=== PATIENT | female | born 1960 | race Caucasian/White ===

== ENCOUNTER 2017-05-04 12:55 | Emergency (ER) | payer OTHER ==
--- NOTE | ~2017-05-04 | ER ---
PATIENT'S NAME: HARLEY NEWMAN [facility] AGE: 57 Y [address] ROOM: [place] [address] LOCATION: [facility] ADMIT DATE: 05/04/2017 ER/Outpatient Report DISCHARGE DATE: 05/04/2017 FAMILY PHYSICIAN: PHYSICIAN, NO ATTENDING PHYSICIAN: Demond Deleon Time of Arrival: 1255 hours. Time of Evaluation: 1255 hours. CHIEF COMPLAINT: Chest pressure. HISTORY OF PRESENT ILLNESS: The patient is a 57-year-old female, who presents to the emergency department today with a chief complaint of chest pressure. The patient reports this started about 45 minutes prior to arrival. It is in the center of her chest. It radiates to her left arm. She denies any shortness of breath. No diaphoresis. No nausea or vomiting. No weakness. 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 The patient does report she had a similar episode about 2 weeks prior to arrival. PAST MEDICAL HISTORY: SVT, MS. She did have a stress test a few years ago, that was negative she reports. PAST SURGICAL HISTORY: Hysterectomy, cholecystectomy, tonsillectomy. SOCIAL HISTORY: The patient smokes a pack per day. Denies any alcohol or illicit drug use. ALLERGIES: NO KNOWN DRUG ALLERGIES. MEDICATIONS: Please see list. PRIMARY CARE DOCTOR: Dr. Sanches in [place]. REVIEW OF SYSTEMS: All systems are reviewed by myself and are negative with the exception of those discussed in the HPI and past medical history. PHYSICAL EXAMINATION: PATIENT'S NAME: HARLEY NEWMAN [facility] AGE: 57 Y [address] ROOM: [place] [address] LOCATION: [facility] ADMIT DATE: 05/04/2017 ER/Outpatient Report DISCHARGE DATE: 05/04/2017 FAMILY PHYSICIAN: PHYSICIAN, NO ATTENDING PHYSICIAN: Demond Deleon VITAL SIGNS: Weight 75.4 kg, blood pressure 167/70, pulse 55, respiratory rate 20, temperature 97.2, oxygen saturation 99% on room air. GENERAL: The patient is a 57-year-old female, who appears stated age. HEENT: Head: Normocephalic, atraumatic. NECK: Supple. There is no nuchal rigidity. CARDIOVASCULAR: Bradycardic. No murmurs, rubs, or gallops. LUNGS: Clear to auscultation bilaterally. No wheezes, rales, or rhonchi. ABDOMEN: Soft, nontender, and nondistended. No rebound, rigidity, or guarding. MUSCULOSKELETAL: The patient moves all 4 extremities. SKIN: Warm and dry. LABORATORY DATA AND X-RAYS: Labs and x-rays are obtained. CBC is remarkable for hemoglobin 8.1, hematocrit 27.8. Coags are normal. Occult blood is negative. CMP is unremarkable. LFTs normal. Magnesium is 1.8. Cardiac enzymes are normal. D- dimer is 0.51. EKG is obtained, is interpreted by myself, shows sinus bradycardia with a rate of 54, normal axis, normal interval. No ST elevation, ST depression, T-wave inversions. Repeat 2-hour EKG shows sinus bradycardia with a rate of 56, normal axis, normal interval. No ST elevation, ST depression, T-wave inversions. Chest x-ray shows no acute process. A 2-hour cardiac enzymes are normal. IMPRESSION: 1. Chest pain, unclear etiology. 2. Near syncope. 3. Anemia of unclear chronicity. 4. Leaving against medical advice. 5. Initial visit. EMERGENCY DEPARTMENT COURSE: The patient was brought back to the examination room. Seen and evaluated by myself. IV is established. Jannet, nurse practitioner, has also seen and evaluated the patient. The results are obtained. I have discussed results with the patient and her at the bedside. I have recommended admission to the hospital for further evaluation, treatment, and management. The patient does refuse. She wishes to go home. I have discussed alternatives including obtaining 2-hour cardiac enzymes. The patient does agree to this. I have discussed the risks and benefits of leaving against medical advice. The risks include that we have not ruled out a heart attack at this time; we do not know the cause of her anemia, and she is having episodes of feeling like she is going to pass out. All 3 of these have caused me to certainly recommend keeping this patient in the hospital. The benefits do ruling out heart attack, ruling out the potential causes of her anemia. After discussion of risks and benefits, the patient still does wish to leave against medical advice. She has signed AMA form and does have the mental capacity to make her PATIENT'S NAME: TRENTHARLEY [facility] AGE: 57 Y [address] ROOM: [place] [address] LOCATION: [facility] ADMIT DATE: 05/04/2017 ER/Outpatient Report DISCHARGE DATE: 05/04/2017 FAMILY PHYSICIAN: PHYSICIAN, GREG ATTENDING PHYSICIAN: Demond Deleon own decision regarding this. Her is in agreement. I have asked that she follows up with her primary care doctor as soon as possible. I have discussed return to care instructions including worsening symptoms, chest pain, passing out, shortness of breath, or any other concerns to return to the emergency department as soon as possible. The patient is agreeable. She is without further questions at this time. DISPOSITION: The patient is discharged to home in stable condition against medical advice. DO ESTLEA MERCEDES/isakl /[id number] d: 05/04/17 2359 t: 05/06/17 0721, OUTPATIENT REPORT
--- NOTE | ~2017-05-04 | ER ---
PATIENT'S NAME: HARLEY NEWMAN [facility] AGE: 57 Y [address] ROOM: [place] [address] LOCATION: ED ADMIT DATE: 05/04/2017 ER/Outpatient Report DISCHARGE DATE: 05/04/2017 FAMILY PHYSICIAN: PHYSICIAN, GREG ATTENDING PHYSICIAN: Demond Deleon CHIEF COMPLAINT: Chest pain. HISTORY OF PRESENT ILLNESS: This patient is traveling back to [place] after having been on vacation with her significant other in a camper since the middle of March. They have been to the [facility] and now are on their way back home to [place]. She had chest pain while traveling in the vehicle, describing it more of as a pressure in the center of her chest with some radiation down her arm. She states she did not have any nausea, she did feel a little short of breath during the time. She took a nitroglycerin and then became very lightheaded, everything went black and at that point, the significant other called an ambulance. She states that she took some deep breaths, began to feel better and then noted that the heaviness in her chest had gone away. A couple of weeks ago, she had a similar episode while in [place] and took a nitroglycerin and the pain resolved, she did not seek medical attention at that time. Approximately 1 year ago, the patient had palpitations, sought medical attention, had a Holter monitor, and ultimately was diagnosed with SVT and started on metoprolol and was given Cardizem to take as needed. At that time, she did have a stress test that was read as "no blockages" according to the patient. PAST MEDICAL HISTORY: Multiple sclerosis, supraventricular tachycardia. SURGICAL HISTORY: Hysterectomy, cholecystectomy, and tonsillectomy. SOCIAL HISTORY: She does smoke a pack per day. She does not drink any alcohol and uses no illicit drugs. ALLERGIES: NONE. MEDICATIONS: Include: 1. Gabapentin 300 mg twice daily. 2. Metoprolol 25 mg daily. 3. Tizanidine 4 mg 3 times a day as needed. PATIENT'S NAME: HARLEY NEWMAN [facility] AGE: 57 Y [address] ROOM: [place] [address] LOCATION: [facility] ADMIT DATE: 05/04/2017 ER/Outpatient Report DISCHARGE DATE: 05/04/2017 FAMILY PHYSICIAN: PHYSICIAN, NO ATTENDING PHYSICIAN: Demond Deleon 4. Esomeprazole 40 mg every day. 5. Gilenya 0.5 mg daily. 6. Nitroglycerin 0.4 mg sublingual p.r.n. 7. Aspirin 81 mg daily. 8. Diltiazem 24 hour CD, but she does not take that, she was told only to take it if her heart was racing on a regular basis. REVIEW OF SYSTEMS: CONSTITUTIONAL: The patient denies any weight loss. States she has gained a little weight. Denies any fevers, chills, or sweats. HEENT: No complaints of headache or visual changes. No upper respiratory symptoms. CARDIOVASCULAR: She has had 2 episodes in the past few weeks of heaviness, described as a pressure in the center of her chest, a couple of weeks ago it radiated down both arms, but she did not get syncopal; with this episode, it went down the left arm and she had the near syncope. RESPIRATORY: She felt short of breath for a brief period of time, that has subsided. No recent cough. No history of lung disease. GI: No nausea, vomiting, diarrhea, or constipation. She states she has had regular bowel movements. She reports that last week she noted her stools to be pompom maker in color. Today, she did have a stool that was a little bit loose, but she did not notice it being dark in color. She has no abdominal pain. : No urgency, frequency, or dysuria. NEURO: No confusion, weakness, or dizziness. MUSCULOSKELETAL: No complaints of myalgias or arthralgias. HEMATOLOGY: No history of bleeding disorder. SKIN: No new rashes or lesions. PHYSICAL EXAMINATION: VITAL SIGNS: Blood pressure is 167/70, pulse of 55, respiratory rate of 20, temperature 97.2, and oxygen saturation 99% on room air. GENERAL APPEARANCE: The patient is alert, oriented. Slightly pale. Warm and dry. No acute distress. HEENT: Head: Normocephalic. Eyes: PERRL. Ears: TMs are pearly garcia with light reflex and landmarks easily visible. Nose is without rhinorrhea. Throat is without erythema, edema, or exudate. Uvula is midline. Mucous membranes are moist. NECK: Supple. No lymphadenopathy. LUNGS: Clear to anterior-posterior auscultation bilaterally. No adventitious lung sounds. Respiratory effort is normal. HEART: Rate is regular. Normal S1, S2. No murmurs. Her rate is slow. ABDOMEN: Soft, nontender, nondistended. Bowel sounds are present in all 4 quadrants. No masses. EXTREMITIES: Peripheral pulses are 2+. Capillary refill less than 3 seconds. No peripheral edema noted. PATIENT'S NAME: HARLEY NEWMAN [facility] AGE: 57 Y [address] ROOM: [place], [place] [address] LOCATION: [facility] ADMIT DATE: 05/04/2017 ER/Outpatient Report DISCHARGE DATE: 05/04/2017 FAMILY PHYSICIAN: PHYSICIAN, NO ATTENDING PHYSICIAN: Demond Deleon NEURO: Cranial nerves 2 through 12 are grossly intact. Motor strength is 4/5 bilaterally in the upper and lower extremities. The patient does walk with a cane due to MS. LABORATORY DATA: White count 4.7, hemoglobin 8.1, hematocrit 27.8, and platelets 324. INR 1.07. D-dimer 0.51. Sodium 143, potassium 3.8, glucose of 88, BUN of 15, and creatinine 0.8. Liver enzymes within normal limits. Magnesium 1.8. CPK of 86, CK-MB 1.3, troponin I less than 0.040. Occult blood is negative. Two- hour cardiac enzymes: CPK of 80, CK-MB 1.1, and troponin I less than 0.040. EKG without ST elevation or depression. She does have bradycardia. Chest x- ray is negative for any acute process. ASSESSMENT: 1. Anemia without evidence of acute blood loss. 2. Chest pressure, etiology undetermined. EMERGENCY DEPARTMENT COURSE: The patient did not have any recurrence of her chest pain. She did not have any ectopy on the monitor. She did remain bradycardic. DISPOSITION AND PLAN: The patient was encouraged to be admitted to the hospital for observation due to anemia that had not previously been diagnosed as well as chest pressure in a 57-year-old female, smoker in the setting of anemia. She declined admission and did sign out AMA. I attempted to contact her primary care provider without any luck reaching him. The patient is encouraged to follow up with her primary care provider immediately upon returning home. The patient was pleasant and grateful for the care she received and agreed to follow up as soon as she got home. GILBERT CEBALLOS APRN FOR DO ABBEY MERCEDES/modl /[id number] d: 05/05/17 0025 t: 05/14/17 1429, OUTPATIENT REPORT
[2017-05-04 13:27] LABS: HEMATOCRIT 27.8 % (33.0-46.0); HEMOGLOBIN 8.1 g/dL (10.0-15.0); MCH 22.4 pg (27.0-34.0); MCHC 29.1 gm/dL (32.0-36.5); MCV 76.8 fl (83.0-98.0); PLATELET COUNT 324 K/uL (150-450); RBC 3.62 M/uL (3.50-5.50); RDW-CV 17.2 % (11.9-14.6); WBC 4.7 K/uL (4.0-11.0)
[2017-05-04 13:35] LABS: INR - (THERAPEUTIC) 1.07 (0.92-1.07); PROTIME 11.2 SECONDS (9.8-11.4); PTT 25 SECONDS (25-32)
[2017-05-04 13:45] LABS: ALBUMIN 3.4 gm/dL (3.5-5.0); ALK PHOS 100 IU/L (33-138); ALT 29 IU/L (12-78); ANION GAP 10.8 (10.0-19.0); AST 18 IU/L (10-40); BLOOD UREA NITROGEN 15 mg/dL (6-24); CALCIUM 8.5 mg/dL (8.5-10.5); CHLORIDE 113 mMol/L (96-110); CO2 23 mMol/L (22-32); CPK 86 IU/L (21-215); CREATININE 0.8 mg/dL (0.5-1.1); ESTIMATED GFR (MDRD EQUATION) > 60; MAGNESIUM 1.8 mg/dL (1.8-2.6); POTASSIUM 3.8 mMol/L (3.7-5.1); SODIUM 143 mMol/L (135-145); TOTAL BILIRUBIN 0.5 mg/dL (0.0-1.5); TOTAL PROTEIN 5.9 g/dL (6.0-8.4)
[2017-05-04 13:57] LABS: ABSOLUTE NEUTROPHIL CT (ANC) 3.9 K/uL (1.8-7.8); BANDED NEUTROPHIL # 0.2 K/uL (0.0-0.1); BANDED NEUTROPHILS % 5 %; LYMPHOCYTE # 0.2 K/uL (0.8-4.0); LYMPHOCYTE % 4 %; MONOCYTE # 0.5 K/uL (0.0-1.0); SEGMENTED NEUTROPHIL # 3.7 K/uL (1.8-7.8); SEGMENTED NEUTROPHIL % 78 %
[2017-05-04 16:07] LABS: CPK 80 IU/L (21-215)
== END 2017-05-04 16:23 | disposition disaster alternative care site (69) ==
LOC: GMED 12:55
PROVIDERS: Emergency Medicine
DX: R07.89 Other chest pain (principal); R55 Syncope and collapse; D64.9 Anemia, unspecified; I47.1 Supraventricular tachycardia; G35 Multiple sclerosis; F17.210 Nicotine dependence, cigarettes, uncomplicated; Z79.82 Long term (current) use of aspirin; Z79.899 Other long term (current) drug therapy; Z90.49 Acquired absence of other specified parts of digestive tract; Z90.710 Acquired absence of both cervix and uterus; Z90.89 Acquired absence of other organs

== ENCOUNTER → 2017-05-04 | Outpatient (CLI) | payer OTHER | END | disposition disaster alternative care site (69) | LOC: GAMB 12:19 | DX: R07.89 Other chest pain (principal); R06.02 Shortness of breath; R20.0 Anesthesia of skin; Z79.899 Other long term (current) drug therapy | CPT/HCPCS: A0425; A0427 ==